=== PATIENT | male | born 1970 | race American Indian/Alaskan Native ===

== ENCOUNTER 2016-12-25 02:34 | Emergency (ER) | payer OTHER ==
--- NOTE | 2016-12-25 03:38 | XRay Report ---
FINAL REPORT PROCEDURE: XR FOOT 2V LT TECHNIQUE: LEFT foot radiographs, AP and lateral views. HISTORY: Lt LLE swelling COMPARISON: No prior studies are available for comparison. FINDINGS: Fracture (s) and/or Dislocation(s): There is impacted moderately displaced fracture of the base of the 1st metatarsal. Comminuted and moderately displaced fractures involving the heads of 2nd 3rd and 4th metatarsals are identified. The distal fragments are laterally displaced. The remaining osseous structures do appear intact. The proximal tarsal bones are not well evaluated on this study. Alignment: Normal. Joint space(s): Mild narrowing of the joint spaces Soft tissues: Moderate diffuse soft tissue swelling Bone mineralization: Normal. Foreign bodies: None. Calcaneal spurring: Moderate inferior calcaneal spur IMPRESSION: Impacted moderately displaced fracture of the base of the 1st metatarsal. Comminuted moderately displaced fractures involving the heads of the 2nd 3rd and 4th metatarsals are noted. There is associated diffuse soft tissue swelling. The tarsal bones proximally are not well evaluated on this study.
[2016-12-25 04:05] LABS: Creatine Kinase MB 2.5 ng/mL (0.0-4.0)
[2016-12-25 04:07] LABS: Albumin 3.7 g/dL (3.9-5); Albumin/Globulin Ratio 0.9 %; Alkaline Phosphatase 85 units/L (35-129); Blood Urea Nitrogen 10 mg/dL (9-20); Calcium 9.6 mg/dL (8.4-10.2); Carbon Dioxide 17 mmol/L (22-30); Chloride 101.8 mmol/L (98-107); Creatine Kinase 327 units/L (55-170); Glucose 112 mg/dL (75-100); Sodium 137 mmol/L (137-145)
[2016-12-25 04:42] LABS: Alanine Aminotransferase 18 units/L (7-56); Anion Gap 23 mmol/L
[2016-12-25 04:43] LABS: Potassium 4.3 mmol/L (3.6-5.0)
[2016-12-25 04:50] LABS: Basophils % (Auto) 0.6 % (0.0-1.8); Hematocrit 45.5 % (35.5-45.6); Hemoglobin 15.6 gm/dl (11.8-15.2); Mean Corpuscular HGB Conc 34 % (32-34); Mean Corpuscular Hemoglobin 30 pg (28-32); Mean Corpuscular Volume 88 fl (84-94); Platelet Count 169 K/mm3 (140-440); Red Blood Count 5.18 M/mm3 (3.65-5.03); Red Cell Distribution Width 14.6 % (13.2-15.2); White Blood Count 9.6 K/mm3 (4.5-11.0)
[2016-12-25 04:51] LABS: Diff Status Complete
[2016-12-25 05:46] LABS: Bacteria,Urine 1+ /HPF (Negative); Bilirubin,Urine NEG (Negative); Blood,Urine MOD (Negative); Ketones,Urine NEG (Negative); Leukocyte Esterase,Urine TR (Negative); Mucus,Urine 1+ /HPF; Nitrite,Urine NEG (Negative); Urobilinogen,Urine < 2.0 mg/dL (<2.0)
--- NOTE | 2016-12-25 08:34 | Cat Scan Report ---
CT HEAD WITHOUT CONTRAST: HISTORY: Syncope. Serial contiguous axial images were obtained through the cranium. Intravenous contrast material was not administered. The ventricles are normal in size and appearance. There is no mass effect or midline shift. No areas of abnormally increased or decreased attenuation are seen. No mass lesion is seen. The right maxillary sinus is opacified. 1 cm mucous retention cyst in the inferior left maxillary sinus is noted. There is partial opacification of the right ethmoid air cells. The remaining visualized sinuses and mastoid air cells are clear. IMPRESSION: Cranial CT scan within normal limits. Sinus disease as described. This is likely chronic. Correlate for acute symptoms.
--- NOTE | 2016-12-25 09:21 | Emergency Department Report ---
HPI - General Chief Complaint: Syncope Time Seen by Provider: 12/25/16 08:02 - HPI HPI: patient states he got hot and had a syncopal episode while working outside. He states his left foot got caught under an equipment and he c/o left foot pain, swelling. patient denies any chest pain, n/v, or sob. ED Past Medical Hx - Past Medical History Previous Medical History?: No - Surgical History Past Surgical History?: No - Family History Family history: hypertension - Social History Smoking Status: Never Smoker Substance Use Type: None - Medications Home Medications: Home Medications Medication Instructions Recorded Confirmed Last Taken Type traMADol [Ultram] 50 mg PO Q6HR PRN #14 tablet 12/25/16 Unknown Rx ED Review of Systems ROS: Stated complaint: LT FOOT PAIN Other details as noted in HPI Comment: All other systems reviewed and negative Constitutional: no symptoms reported Musculoskeletal: joint swelling, arthralgia Neurological: as per HPI Physical Exam - Physical Exam Vital Signs: Vital Signs 12/25/16 12/25/16 12/25/16 02:42 04:10 08:33 Temperature 98.3 F 98 F 98.3 F Pulse Rate 90 88 87 Respiratory 18 20 20 Rate Blood Pressure 151/93 Blood Pressure 145/78 122/76 [Left] O2 Sat by Pulse 96 100 95 Oximetry Physical Exam: gen: alert and oriented x3 heent: perrla, eomi cv: rrr, nl s1, s2 lungs: cta bila abd: s,nt,nd, pos bs ext: no edema gu: pt refused neuro: no deficits psych: normal mood, ext: left foot tenderness, swelling. ED Course Vital Signs 12/25/16 12/25/16 12/25/16 02:42 04:10 08:33 Temperature 98.3 F 98 F 98.3 F Pulse Rate 90 88 87 Respiratory 18 20 20 Rate Blood Pressure 151/93 Blood Pressure 145/78 122/76 [Left] O2 Sat by Pulse 96 100 95 Oximetry ED Medical Decision Making - Lab Data Result diagrams: 12/25/16 04:12 12/25/16 03:21 Critical care attestation.: If time is entered above; I have spent that time in minutes in the direct care of this critically ill patient, excluding procedure time. ED Disposition Clinical Impression: Foot fracture, left Disposition: DC-01 TO HOME OR SELFCARE Is pt being admited?: No Does the pt Need Aspirin: No Condition: Stable Prescriptions: traMADol [Ultram] 50 mg PO Q6HR PRN #14 tablet PRN Reason: Pain Referrals: PRIMARY CARE, [Primary Care Provider] - 3-5 Days ROSMERY AREVALO DPM [Staff Physician] - 3-5 Days
[2016-12-25] MEDS ORDERED: NORCO 10/325 PO ONE (10:02)
[2016-12-25 10:43] VITALS: BP 130/70
== END 2016-12-25 10:43 | disposition home or self-care (01) ==
LOC: ED 02:34
DX: S92.812A Other fracture of left foot, initial encounter for closed fracture (principal); W23.1XXA Caught, crushed, jammed, or pinched between stationary objects, initial encounter; Y93.89 Activity, other specified; Y99.8 Other external cause status; Y92.89 Other specified places as the place of occurrence of the external cause
CPT/HCPCS: 36415; 70450; 80048; 80053; 81001; 82550; 82553; 84484; 85025; 93005; 93010